=== PATIENT | male | born 1950 | race Caucasian/White ===

== ENCOUNTER 2018-08-27 11:53 | Observation (INO) | payer OTHER ==
[~2018-08-27] VITALS: Ht 175.3 cm; Wt 86.7 kg
[2018-08-27 12:31] LABS: BASOPHIL % 0.1 % (0-2); PLATELET COUNT 210 x10^3mcL (130-400)
[2018-08-27 12:42] LABS: CALCIUM 9.5 mg/dL (8.5-10.1); CARBON DIOXIDE 27.1 mmol/L (21-32); CHLORIDE SERUM 104 mmol/L (98-107); CREATININE SERUM 1.2 mg/dL (0.7-1.3); GFR1 > 60 mL/min; GLUCOSE SERUM 126 mg/dL (74-106); POTASSIUM SERUM 3.4 mmol/L (3.5-5.1); SODIUM SERUM 138 mmol/L (136-145)
[2018-08-27 12:47] LABS: ALKALINE PHOSPHATASE 79 U/L (46-116); ALT/SGPT 34 U/L (16-63); AST/SGOT 21 U/L (15-37); BILIRUBIN TOTAL 0.61 mg/dL (0.20-1.00); CHOLESTEROL 163 mg/dL (<200); CHOLESTEROL/HDL RATIO 3.3; HDL CHOLESTEROL 49 mg/dL (40-60); LIPASE 134 IU/L (73-393); TOTAL PROTEIN, SERUM 6.9 g/dL (6.4-8.2); TRIGLYCERIDES 57 mg/dL (<150)
[2018-08-27 12:56] LABS: T3 TOTAL 1.32 ng/mL
[2018-08-27 13:35] LABS: FREE T4 1.1 ng/dL (0.76-1.46); FREE THYROXINE INDEX 2.6 ug/dL (1.4-4.5); T4(THYROXINE) 7.8 ug/dL (4.7-13.3)
[2018-08-27] MEDS ORDERED: FLOMAX0.4 MG PO (14:09)
[2018-08-27] MEDS ORDERED: NAPROXEN500 MG (14:10)
[2018-08-27] MEDS ORDERED: HYDROCODONE (14:11)
[2018-08-27] MEDS ORDERED: CYCLOBENZAPRINE10 MG PO (14:13)
[2018-08-27] MEDS ORDERED: MULTI-VITAMINS1 TAB PO (14:14)
[2018-08-27] MEDS ORDERED: MEGARED OMEGA-1 EAC1 (14:14)
[2018-08-27] MEDS ORDERED: DICLOFENAC (14:14)
[2018-08-27] MEDS ORDERED: EPZICOM1 TAB (14:15)
[2018-08-27] MEDS ORDERED: BIOTIN1 POW (14:15)
[2018-08-27 14:44] VITALS: BP 128/63
[2018-08-27 15:21] LABS: microscopic required? NO
[2018-08-27 15:47] LABS: UA SPECIFIC GRAVITY >=1.030 (1.005-1.035); urine erythrocyte NEGATIVE (NEGATIVE)
[2018-08-27 20:22] VITALS: BP 95/54
[2018-08-28 05:37] VITALS: BP 131/82
[2018-08-28 07:22] LABS: BASOPHIL % 0.2 % (0-2); PLATELET COUNT 228 x10^3mcL (130-400); RED CELL DISTRIBUTION WIDTH 12.9 % (11.5-14.5)
[2018-08-28 07:24] LABS: CALCIUM 8.9 mg/dL (8.5-10.1); CARBON DIOXIDE 24.5 mmol/L (21-32); CHLORIDE SERUM 111 mmol/L (98-107); GFR1 > 60 mL/min; GLUCOSE SERUM 96 mg/dL (74-106); MAGNESIUM 2.2 mg/dL (1.8-2.4); SODIUM SERUM 146 mmol/L (136-145)
[2018-08-28 10:20] VITALS: BP 115/65
[2018-08-28 12:58] VITALS: BP 116/71
[2018-08-28 15:15] VITALS: BP 116/71
== END 2018-08-28 15:40 | disposition home or self-care (01) | DRG 312 ==
LOC: ED 11:53 → DU 14:05
PROVIDERS: Internal Medicine Pulmonary Disease; Specialist
DX: R55 Syncope and collapse (principal); I10 Essential (primary) hypertension; I44.0 Atrioventricular block, first degree; N40.0 Benign prostatic hyperplasia without lower urinary tract symptoms; E86.9 Volume depletion, unspecified
CPT/HCPCS: 83880; 84439; G0378; J7030; Q0092